=== PATIENT | female | born 1960 | race Asian ===

== ENCOUNTER → 2016-12-13 15:28 | Outpatient (CLI) | payer OTHER | END | disposition home or self-care (01) | LOC: AMB 15:28 | DX: Z04.1 Encounter for examination and observation following transport accident (principal) ==

== ENCOUNTER 2016-12-13 16:05 | Emergency (ER) | payer OTHER ==
[~2016-12-13] VITALS: Ht 160 cm; Wt 63.5 kg
== END 2016-12-13 18:04 | disposition home or self-care (01) ==
LOC: ED 16:05
DX: S16.1XXA Strain of muscle, fascia and tendon at neck level, initial encounter (principal); V49.40XA Driver injured in collision with unspecified motor vehicles in traffic accident, initial encounter
CPT/HCPCS: 99283